=== PATIENT | male | born 2000 | race Two or more races ===

== ENCOUNTER 2023-02-10 11:07 | Emergency (ER) | payer BC, OTHER ==
[~2023-02-10] VITALS: Ht 188 cm; Wt 126.0 kg
[2023-02-10 12:26] VITALS: BP 139/83
[2023-02-10] MEDS ORDERED: CEPH500C PO (12:53)
== END 2023-02-10 12:57 | disposition home or self-care (01) ==
LOC: ER 11:07
DX: S61.031A Puncture wound without foreign body of right thumb without damage to nail, initial encounter (principal); Z79.899 Other long term (current) drug therapy; W26.8XXA Contact with other sharp object(s), not elsewhere classified, initial encounter; Y93.89 Activity, other specified; Y92.89 Other specified places as the place of occurrence of the external cause; Y99.8 Other external cause status
CPT/HCPCS: 73130